=== PATIENT | female | born 1955 | race Caucasian/White ===

== ENCOUNTER → 2019-09-03 07:03 | Outpatient (CLI) | payer OTHER, SELFPAY ==
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
== END ==
PROVIDERS: PCP Family Medicine; Referring Provider Family Medicine; Visit Provider Family Medicine
DX: S46.912A Strain of unspecified muscle, fascia and tendon at shoulder and upper arm level, left arm, initial encounter (principal); Y09 Assault by unspecified means
CPT/HCPCS: 73221